=== PATIENT | male | born 1965 | race Caucasian/White ===

== ENCOUNTER 2017-01-23 14:00 | Outpatient (CLI) | payer MEDICAID ==
[2017-01-23 17:55] LABS: HCT - HEMATOCRIT 30.9 % (42.0-52.0); HGB - HEMOGLOBIN 10.1 g/dL (14.0-18.0); MEAN CORPUSCULAR HEMOGLOBIN 31.4 pg (27.0-31.0); MEAN CORPUSCULAR HGB CONC 32.6 g/dL (32.0-36.0); MEAN CORPUSCULAR VOLUME 96.5 fL (80.0-94.0); RED BLOOD COUNT 3.2 10^6/uL (4.70-6.10); RED CELL DISTRIBUTION WIDTH 19.9 % (12.0-15.0)
[2017-01-23 18:09] LABS: ALBUMIN/GLOBULIN RATIO 0.6 (1.0-2.2); BILIRUBIN,TOTAL 1.9 mg/dL (0.2-1.0); BUN - BLOOD UREA NITROGEN < 5 mg/dL (6-20); CALCIUM 7.9 mg/dL (8.5-10.3); CARBON DIOXIDE - CO2 25 mmol/L (21-32); CHLORIDE 101 mmol/L (101-111); CREATININE 0.6 mg/dL (0.6-1.2); GFR - MDRD 143 (>89); GLUCOSE 142 mg/dL (70-100); POTASSIUM 3.8 mmol/L (3.5-5.0); SODIUM 133 mmol/L (135-145); TOTAL PROTEIN 6.8 g/dL (6.7-8.2)
== END 2017-01-23 14:01 | disposition home or self-care (01) ==
LOC: LAB.F 14:00
PROVIDERS: ATTEND Nurse Practitioner Family
DX: K74.60 Unspecified cirrhosis of liver (principal); D69.6 Thrombocytopenia, unspecified
CPT/HCPCS: 36415; 80053; 85025

== ENCOUNTER 2017-04-01 09:15 | Outpatient (CLI) | payer MEDICAID ==
--- NOTE | 2017-04-01 10:42 | Ultrasound Report ---
LIMITED ABDOMINAL ULTRASOUND: 04/01/2017 CLINICAL INDICATION: Alcoholic cirrhosis, assess volume of ascites. TECHNIQUE: Real-time scanning was performed with representative personal service static images obtained. FINDINGS: Ultrasound of the four quadrants was performed. Small pockets of ascites are seen in the lower quadrants bilaterally. IMPRESSION: SMALL VOLUME OF ASCITES IN THE LOWER QUADRANTS. JOB #: [id number] EXT JOB #:[id number]
== END 2017-04-01 09:16 | disposition home or self-care (01) ==
LOC: DI 09:15
PROVIDERS: ATTEND Nurse Practitioner Family
DX: K70.31 Alcoholic cirrhosis of liver with ascites (principal)
CPT/HCPCS: 76705

== ENCOUNTER 2017-04-12 12:20 | Outpatient (CLI) | payer MEDICAID ==
[2017-04-12 12:43] LABS: BASOPHILS # (AUTO) 0.1 10^3/uL (0.0-0.1); BASOPHILS % (AUTO) 1.1 %; EOSINOPHILS # (AUTO) 0.1 10^3/uL (0.0-0.7); EOSINOPHILS % (AUTO) 1.8 %; HCT - HEMATOCRIT 31.5 % (42.0-52.0); HGB - HEMOGLOBIN 10.5 g/dL (14.0-18.0); LYMPHOCYTES # (AUTO) 1.8 10^3/uL (1.5-3.5); LYMPHOCYTES % (AUTO) 23.6 %; MEAN CORPUSCULAR HEMOGLOBIN 30.2 pg (27.0-31.0); MEAN CORPUSCULAR HGB CONC 33.2 g/dL (32.0-36.0); MEAN PLATELET VOLUME 8.8 fL (7.4-11.4); MONOCYTES # (AUTO) 1.1 10^3/uL (0.0-1.0); MONOCYTES % (AUTO) 14.2 %; NEUTROPHILS # (AUTO) 4.5 10^3/uL (1.5-6.6); NEUTROPHILS % (AUTO) 59.3 %; RED BLOOD COUNT 3.46 10^6/uL (4.70-6.10); RED CELL DISTRIBUTION WIDTH 19.8 % (12.0-15.0); UNCORRECTED WHITE BLOOD COUNT 7.5 x10^3/uL; WHITE BLOOD COUNT 7.5 x10^3/uL (4.8-10.8)
[2017-04-12 13:35] LABS: ALBUMIN/GLOBULIN RATIO 0.6 (1.0-2.2); BUN - BLOOD UREA NITROGEN < 5 mg/dL (6-20); CALCIUM 8.2 mg/dL (8.5-10.3); CARBON DIOXIDE - CO2 25 mmol/L (21-32); CHLORIDE 100 mmol/L (101-111); CREATININE 0.8 mg/dL (0.6-1.2); GFR - MDRD 102 (>89); GLUCOSE 140 mg/dL (70-100); POTASSIUM 3.9 mmol/L (3.5-5.0); SODIUM 131 mmol/L (135-145); TOTAL PROTEIN 7.3 g/dL (6.7-8.2)
== END 2017-04-12 12:21 | disposition home or self-care (01) ==
LOC: LAB 12:20
PROVIDERS: ATTEND Nurse Practitioner Family
DX: E80.7 Disorder of bilirubin metabolism, unspecified (principal); K70.31 Alcoholic cirrhosis of liver with ascites; D69.6 Thrombocytopenia, unspecified; F10.10 Alcohol abuse, uncomplicated
CPT/HCPCS: 36415; 80053; 82140; 85025

== ENCOUNTER 2018-04-08 10:16 | Outpatient (CLI) | payer MEDICAID ==
[2018-04-08 18:05] LABS: BASOPHILS % (AUTO) 1.1 %; EOSINOPHILS # (AUTO) 0.1 10^3/uL (0.0-0.7); EOSINOPHILS % (AUTO) 2.2 %; HGB - HEMOGLOBIN 11.6 g/dL (14.0-18.0); LYMPHOCYTES # (AUTO) 1.6 10^3/uL (1.5-3.5); LYMPHOCYTES % (AUTO) 39.7 %; MEAN CORPUSCULAR HEMOGLOBIN 34.6 pg (27.0-31.0); MEAN CORPUSCULAR HGB CONC 33.6 g/dL (32.0-36.0); MEAN CORPUSCULAR VOLUME 102.8 fL (80.0-94.0); MEAN PLATELET VOLUME 9.7 fL (7.4-11.4); MONOCYTES # (AUTO) 0.6 10^3/uL (0.0-1.0); NEUTROPHILS # (AUTO) 1.7 10^3/uL (1.5-6.6); PLT - PLATELET COUNT 43 10^3/uL (130-450); RED BLOOD COUNT 3.36 10^6/uL (4.70-6.10); RED CELL DISTRIBUTION WIDTH 18.4 % (12.0-15.0); WHITE BLOOD COUNT 3.9 x10^3/uL (4.8-10.8)
[2018-04-08 18:27] LABS: ALBUMIN 2.2 g/dL (3.2-5.5); ALBUMIN/GLOBULIN RATIO 0.5 (1.0-2.2); ALKALINE PHOSPHATASE 120 IU/L (42-121); ALT ALANINE AMINOTRANSFERASE 37 IU/L (10-60); AST ASPARTATE AMINOTRANSFERASE 89 IU/L (10-42); BILIRUBIN,TOTAL 2.1 mg/dL (0.2-1.0); BUN - BLOOD UREA NITROGEN < 5 mg/dL (6-20); CALCIUM 7.8 mg/dL (8.5-10.3); CARBON DIOXIDE - CO2 25 mmol/L (21-32); CHLORIDE 104 mmol/L (101-111); CREATININE 0.8 mg/dL (0.6-1.2); GFR - MDRD 102 (>89); GLUCOSE 140 mg/dL (70-100); SODIUM 135 mmol/L (135-145); TOTAL PROTEIN 6.4 g/dL (6.7-8.2)
== END 2018-04-08 10:17 | disposition home or self-care (01) ==
LOC: LAB.F 10:16
PROVIDERS: ATTEND Nurse Practitioner Family
DX: K70.31 Alcoholic cirrhosis of liver with ascites (principal); E80.7 Disorder of bilirubin metabolism, unspecified; D53.9 Nutritional anemia, unspecified; D69.6 Thrombocytopenia, unspecified
CPT/HCPCS: 36415; 80053; 85025